=== PATIENT | male | born 1960 | race Two or more races ===

== ENCOUNTER 2020-02-09 10:50 | Emergency (ER) | payer SELFPAY ==
[~2020-02-09] VITALS: Ht 165.1 cm; Wt 77.1 kg
[~2020-02-09 10:50] MED LIST: NAPROXEN500 M2 ORAL
[2020-02-09 11:05] VITALS: BP 150/93
--- NOTE | 2020-02-09 11:10 | NUR ---
ED Nurse Note: Patient walked in from home due to left thumb swelling and pain x 2 days. Pt states he got a splinter on his left thumb and he took it out.
[2020-02-09] MEDS ORDERED: CEPHALEXIN500 MG ORAL (11:43)
--- NOTE | 2020-02-09 12:02 | Emergency Room Report ---
History of Present Illness General Chief Complaint: Skin Rash/Abscess Source: Patient Present Illness HPI Disclaimer: Please note that this report is being documented using DRAGON technology. This can lead to erroneous entry secondary to incorrect interpretation by the dictating instrument. HPI: 59-year-old [id number] male presents for evaluation of pain and swelling of his left thumb. Patient states he was woodworking 1 week ago had a splinter in the base of his right thumb. Noted swelling and redness. Mild pus drained in the earlier part of the week. No further drainage or bleeding. Noted swelling persisted. Still able to flex and extend. Denies pain or swelling in the distal part of the digit on the proximal part of the hand. No skin breakdown otherwise. Denies fever, chills. Does not inject any medications or IV drugs. Full range of motion in the digits otherwise. No other trauma reported. PMH: Reviewed PSH: Reviewed Allergies: Reviewed Social Hx: Reviewed Allergies: Coded Allergies: No Known Allergies (Unverified , 12/03/11) COVID-19 Screening Contact w/high risk pt: No Experienced COVID-19 symptoms?: No COVID-19 Testing performed [employer] MEN'S [employer] BOYS' CLOTHING: No Nursing Documentation-PMH Past Medical History: No Stated History Review of Systems All Other Systems: negative except mentioned in HPI Physical Exam Vital Signs Date Time Temp Pulse Resp B/P (MAP) Pulse Ox O2 Delivery O2 Flow Rate FiO2 02/09/20 10:56 98.1 67 16 150/93 (112) 96 Room Air General: Awake and alert, no acute distress HEENT: NC/AT. EOMI. Resp: Normal work of breathing Skin: Mild edema and erythema over the proximal pad of the left thumb. Erythematous and mildly tender. No fluctuance. MSK: Normal tone and bulk. Moving all extremities. No fusiform swelling. Able to flex and extend the digit. No pain on passive flexion or extension. No tenderness anatomic snuffbox. Neuro: Awake and alert. Mentating appropriately Medical Decision Making Diagnostic Impression: Primary Impression: Cellulitis, finger ER Course 59-year-old [id number] male presents for evaluation of pain and swelling of his left thumb. Patient states he remove the splinter 1 week ago and now has swelling. Bedside ultrasound was performed by me showing no retained foreign body but mild cobblestoning consistent with a cellulitis. No deep space abscess was identified. Patient has range of motion preserved in the thumb but will require antibiotics for treatment of his cellulitis. No evidence of flexor tenosynovitis. Patient stable for outpatient follow-up though strict return precautions were discussed. He understands and agrees with this treatment plan will be discharged home. Diagnostic POCUS Bedside Ultrasound Diagnostics: Bedside US Exam performed: Soft Tissue Limited Indication: Foreign Body Number of Views: Limited Interpreted by Emergency Physi: Yes Soft Tissue Limited Findings: No fluid collections, No abcess, No foreign body, Other - Cobblestoning consistent with cellulitis Impression: Cellulitis Electronically Signed by: Electronically signed by Dr. Nic Dewitt MD Last Vital Signs Date Time Temp Pulse Resp B/P (MAP) Pulse Ox O2 Delivery O2 Flow Rate FiO2 02/09/20 10:56 98.1 67 16 150/93 (112) 96 Room Air Disposition: HOME, SELF-CARE Condition: Stable Scripts Cephalexin* (KEFLEX*) 500 Mg Capsule 500 MG ORAL EVERY 12 HOURS, #14 CAP 0 Refills Prov: Nic Dewitt MD 02/09/20 Referrals: [facility] Open 24 hour /7 days a week by Appointment Only [address] [address] Patient Instructions: Cellulitis Additional Instructions: Please follow-up with your primary care doctor in the next 1 to 3 days to discuss this emergency department visit and for reevaluation. If you have any new or worsening symptoms please return to the emergency department for reevaluation. Please note that this report is being documented using XDx technology. This can lead to erroneous entry secondary to incorrect interpretation by the dictating instrument. Nic Dewitt MD Feb 09, 2020 12:02
[2020-02-09 12:16] VITALS: BP 142/90
--- NOTE | 2020-02-09 12:16 | NUR ---
ER DISCHARGE NOTE: Patient is cleared to be discharged per ERMD, pt is aox4, on room air, with stable vital signs. pt was given dc and prescription instructions, pt was able to verbalize understanding, pt id band removed without complications. pt is able to ambulate with steady gait. pt took all belongings.
== END 2020-02-09 12:16 | disposition home or self-care (01) ==
LOC: EMR 12:15
DX: L03.012 Cellulitis of left finger (principal)
CPT/HCPCS: 99282